=== PATIENT | male | born 1965 | race African-American/Black ===

== ENCOUNTER 2016-08-29 14:54 | Emergency (ER) | payer OTHER ==
[~2016-08-29] VITALS: Ht 170.2 cm; Wt 79.1 kg
[2016-08-29 15:18] VITALS: BP 141/87; PULSE 82; RESP 15; O2SAT 100
== END 2016-08-29 16:54 | disposition left against medical advice (07) ==
LOC: SED 14:54
DX: Z53.21 Procedure and treatment not carried out due to patient leaving prior to being seen by health care provider (principal)

== ENCOUNTER 2016-10-28 12:06 | Inpatient (IN) | payer OTHER ==
[~2016-10-28] VITALS: Ht 170.2 cm; Wt 76.1 kg
[2016-10-28] VITALS (13 sets, daily range): BP systolic 111–133; BP diastolic 72–87; PULSE 51–65; RESP 14–51; O2SAT 95–99
[2016-10-28] MEDS ORDERED: PYRI60TA PO (12:30)
[2016-10-28] MEDS ORDERED: PRE20 PO (12:30)
[2016-10-28] MEDS ORDERED: RANI150T11 PO (12:30)
[2016-10-28 12:57] LABS: BASOPHILS % (AUTO) 0.5 % (0-3); EOSINOPHILS % (AUTO) 0.3 % (0-5); MONOCYTES % (AUTO) 1.5 % (4-12); Mean Corpuscular Hemoglobin 25.6 pg (27.0-35.0); Mean Corpuscular Volume 78.6 fL (81-100); Platelet Count 297 bil/L (150-400)
--- NOTE | 2016-10-28 13:00 | ED.REPORT ---
HPI-Dyspnea / Wheezing Date of Service Oct 28, 2016 ED Provider: Tyler Epstein MD Pt is a 51 year old male with a history of recent diagnosis of myasthenia gravis who presents to the ED complaining of weakness onset yesterday. He c/o associated difficult walking and SOB. He denies pain, injury, nausea, vomiting, chest pain, fever, diaphoresis, and leg swelling. The pt reports that he felt weak last night, causing him to collapse; following that time, the pt was unable to walk and had to be helped to the bed. Per pt, his weakness is most prominent in his legs bilaterally. Nursing Notes Stated Complaint: FELL/TROUBLE BREATHING Chief Complaint: General Complaint Nursing Notes Reviewed: Yes ([facility] not reconciled) Allergies: Coded Allergies: No Known Allergies (Verified Allergy, Unknown, 08/29/16) Scheduled Prednisone (PredniSONE) 20 Mg Tablet 80 MG PO DAILY TAPER Pyridostigmine Meridian (Pyridostigmine Meridian) 60 Mg Tablet 30 MG PO TID Ranitidine (Zantac) 150 Mg Tablet 150 MG PO BID General Time Seen by MD: 12:45 Chief Complaint Other (Weakness) Hx Obtained From: Patient Arrived By: Walk-in Sudden in Onset?: No Onset Occurred: Yesterday Symptom Duration: Since onset Severity: Current: No pain currently Severity: Maximum: No pain Recent Healthcare: Recent doctor visit Similar Sx Previous: No Past Medical History Past Medical History Notes: Neurologist Dr. Salguero Past Medical History Myasthenia Gravis (New Dx: 10/2016) Past Surgical History Denies Smoking History Unknown if Ever Smoker Social History Other Social History: Good social support Ambulatory Status Independent Review of Systems Constitutional: Reports: Weakness - generalized, Denies: Chills, Fever Respiratory: Reports: Dyspnea on exertion, Shortness of breath Cardiovascular: Denies: Chest pain Skin: Denies Diaphoresis Complete sys rev & neg: except as marked. GI: Denies: Nausea, Vomiting Neurologic: Reports: Problem walking, Weakness Physical Exam Initial Vital Signs Vital Signs (First) Date Time Temp Pulse Resp B/P Pulse Ox O2 Delivery O2 Flow Rate FiO2 10/28/16 12:19 36.8 64 14 115/73 99 Room Air Initial VS: Reviewed, Vital signs normal Head / Eyes: Atraumatic, Normocephalic Abdomen / GI: Soft, Non-tender Extremities: Vascular intact, Neuro intact Skin: Warm, Dry, No cyanosis Neurologic: Alert, Oriented, Nonfocal Psychiatric: Mood/affect normal, Behavior normal General/Constitutional: Awake, Alert, Cooperative, Not toxic appearing Fatigued Neck: Atraumatic, Full range of motion Respiratory / Chest: Atraumatic, Breath sounds NL, Breath sounds = bilat Not visibily short of breath or in respiratory failure Cardiovascular: Heart rate NL, Regular rhythm, Heart sounds NL Neurologic: Oriented X3, Speech NL Bilaterally dysmetria. Fatigue ability that is marked and symmetric bilaterally. He can lift his legs off the bed for about 3-4 seconds. Interpretation & Diagnostics Lab Results Interpretation Result Diagram: 10/28/16 1235 10/28/16 1235 Test 10/28/16 12:35 White Blood Count 4.0th/mm3 (3.8-10.1) Red Blood Count 5.24mil/mm3 (4.40-5.80) Hemoglobin 13.4g/dL (13.8-17.2) Hematocrit 41.2% (41.0-50.0) Mean Corpuscular Volume 78.6fL (81-100) Mean Corpuscular Hemoglobin 25.6pg (27.0-35.0) Mean Corpuscular Hemoglobin Concent 32.5% (32.0-37.0) Red Cell Distribution Width 15.4% (12.3-15.4) Platelet Count 297bil/L (150-400) Neutrophils (%) (Auto) 81.0% (40-74) Lymphocytes (%) (Auto) 15.9% (14-46) Monocytes (%) (Auto) 1.5% (4-12) Eosinophils (%) (Auto) 0.3% (0-5) Basophils (%) (Auto) 0.5% (0-3) Sodium Level 137mEq/L (134-144) Potassium Level 3.6mEq/L (3.5-5.2) Chloride Level 97mEq/L (97-108) Carbon Dioxide Level 22mmol/L (18-29) Blood Urea Nitrogen 18mg/dL (6-24) Creatinine 1.08mg/dL (0.76-1.27) Estimat Glomerular Filtration Rate 76mL/min (>59) Glucose Level 135mg/dL (60-99) Calcium Level 9.7mg/dL (8.5-10.1) Total Bilirubin 0.4mg/dL (0.0-1.2) Aspartate Amino Transf (AST/SGOT) 28U/L (0-50) Alanine Aminotransferase (ALT/SGPT) 48U/L (0-44) Alkaline Phosphatase 55U/L (25-150) Troponin T < 0.010ug/L (0.0-0.011) Pro-B-Type Natriuretic Peptide < 5.00pg/mL (0-121) Total Protein 8.2g/dL (6.4-8.4) Albumin 4.6g/dL (3.4-5.0) Lab Results Interpretation: CBC nl CMP nl ECG Interpretation ECG Interpretation: Normal sinus rhythm with a rate of 66 Non-specific t-wave changes V1V2 No prior EKG for comparison. Time: 12:32 Interpreted by: ED physician X-Ray Chest Interpretation Chest Xray Interpretation: IMPRESSION: No source of cough is found. Dictated by: Carrington Tadeo M.D. on 10/28/2016 at 13:15 View: Portable, 1 view Interpretation / Wet Read by: Interpret - Radiologist Re-Eval/Medical Decision Med Decision/Clinical Course This is a 51M with 6 weeks of progressive neurologic symptoms, was diagnosed with myasthenia gravis last week. He is started a course of prednisone, as well as a low dose of Mestinon. I was continued to have weakness, and last night fell trying to walk. This morning he he was unable to ambulate, and he has a trace sense of shortness of breath. He denies fevers or chills. He denies infectious symptoms. He denies any injury from the fall yesterday. He has no laterality-the weakness is worse in the legs, but also involves the arm, but both right and left sides are symmetric. He denies difficulty swallowing, or diplopia. Symptoms are worsened by exertion and activity. Patient is globally weak. He does not appear toxic or in any visible distress. He is not clinically evident to be in any respiratory distress or near respiratory failure. His negative inspiratory pressures on the low end of normal, no signs of impending respiratory failure. He does have marked fatigability, and has difficulty with bilateral dysmetria, can only hold his legs up off the bed for about 3 seconds. However there is no asymmetry. Screening labs are normal. Chest x-rays negative. Overall his presentation is concerning for for his myasthenia, I doubt a cholinergic crisis given the low dose Mestinon being used. I discussed the case with Dr. salguero, who will consult and who recommends going ahead and initiating IVIG-so the first doses has been ordered. The patient be admitted for continued management. Source of Hx: Old records Re-Evaluation/Progress : Time of Eval: 14:08 Re-Evaluation/Progress Note: Pt rechecked. Informed pt of plan for admission. Pt understands and agrees with plan for admission. All questions addressed. Consultation #1: Referral / Consult Name: Pramod Salguero MD Consulted With: Neurology Call Returned at: 14:00 Cognos Developer: Agrees with eval, Agrees with plan Consultation #2: Referral / Consult Name: William Skelton MD Consulted With: Hospitalist Call Returned at: 14:37 Cognos Developer: Will see patient, Agrees with eval, Agrees with plan, Accepts admit Differential Diagnosis: Negative: Acute coronary syndrome, Airway obstruction, Dysrhythmia, Exercise induced asthma Counseled Regarding: Diagnosis, Lab results, Need for admission Discharge & Departure Impression: Primary Impression: Myasthenia gravis Additional Impression: Unable to ambulate Disposition: ADMITTED TO HOSPITAL Discharge Condition All VS Reviewed: Yes Condition: Stable Referrals: Emmanuel Cooney MD (PCP) Scribe Attestation Portions of this note were transcribed by Alina Edge. I, Dr. Epstein personally performed the history, physical exam and medical decision-making; I reviewed and confirmed the accuracy of the information in the transcribed note. Signed by: Sukhdev Unger, 10/28/16 and 14:40. copies to: Emmanuel Cooney MD, Matthew F MD Oct 28, 2016 13:00 Alina Marlow Oct 28, 2016 13:11
--- NOTE | 2016-10-28 13:17 | DRSVH ---
PROCEDURE: X-RAY CHEST ONE VIEW, PORTABLE ([id number]) INDICATIONS: COUGH TECHNIQUE: One view of the chest was acquired. COMPARISON: None. FINDINGS: Surgical changes and devices: None. Lungs and pleura: No pleural effusions or pneumothorax. Lungs are clear. Mediastinum: Mediastinal contours appear normal. Heart size is normal. Bones and chest wall: No suspicious bony lesions. Overlying soft tissues appear unremarkable. IMPRESSION: No source of cough is found. Dictated by: Carrington Tadeo M.D. on 10/28/2016 at 13:15 Approved by: Carrington Tadeo M.D. on 10/28/2016 at 13:15
[2016-10-28 13:23] LABS: TROPONIN T < 0.010 ug/L (0.0-0.011)
[2016-10-28] MEDS ORDERED: IVIG per Pharmacy (Initial) XX ONE ×2 (14:05→16:20)
[2016-10-28] MEDS ORDERED: 0.9% Sodium Chloride 1,000 ML IV SCH (14:38)
[2016-10-28] MEDS ORDERED: Ondansetron 2 mg/mL 2 mL Inj IVPUSH PRN ×2 (14:40→16:10)
[2016-10-28] MEDS ORDERED: Alum-Mag Hydrox-Simeth 30 mL Suspension PO PRN ×2 (14:40→16:10)
[2016-10-28] MEDS ORDERED: diphenhydrAMINE 25 mg Capsule PO ONE (15:25)
[2016-10-28] MEDS ORDERED: Privigen 10% 10 Gm/100 mL, 20 Gm/200 mL IV ONE ×2 (16:00)
[2016-10-28] MEDS ORDERED: Polyethylene Glycol (PEG) 17 Gm Powder PO PRN (16:10)
[2016-10-28] MEDS ORDERED: Potassium Chloride 20 mEq SR Tablet PO ONE (16:20)
--- NOTE | 2016-10-28 16:31 | PCM.CONPHA ---
Subjective Date of Service: Oct 28, 2016 Objective Vital Signs Date Time Temp Pulse Resp B/P Pulse Ox O2 Delivery O2 Flow Rate FiO2 10/28/16 15:25 36.6 51 17 128/85 98 Room Air 10/28/16 14:55 56 23 124/78 97 Room Air 10/28/16 13:49 36.5 60 17 118/78 98 Room Air 10/28/16 12:32 65 14 98 10/28/16 12:19 36.8 64 14 115/73 99 Room Air Weight (Kilograms): 76.100 Height (Feet): 5 Height (Inches): 7.00 Test 10/28/16 12:35 White Blood Count 4.0th/mm3 (3.8-10.1) Red Blood Count 5.24mil/mm3 (4.40-5.80) Hemoglobin 13.4g/dL (13.8-17.2) Hematocrit 41.2% (41.0-50.0) Mean Corpuscular Volume 78.6fL (81-100) Mean Corpuscular Hemoglobin 25.6pg (27.0-35.0) Mean Corpuscular Hemoglobin Concent 32.5% (32.0-37.0) Red Cell Distribution Width 15.4% (12.3-15.4) Platelet Count 297bil/L (150-400) Neutrophils (%) (Auto) 81.0% (40-74) Lymphocytes (%) (Auto) 15.9% (14-46) Monocytes (%) (Auto) 1.5% (4-12) Eosinophils (%) (Auto) 0.3% (0-5) Basophils (%) (Auto) 0.5% (0-3) Sodium Level 137mEq/L (134-144) Potassium Level 3.6mEq/L (3.5-5.2) Chloride Level 97mEq/L (97-108) Carbon Dioxide Level 22mmol/L (18-29) Blood Urea Nitrogen 18mg/dL (6-24) Creatinine 1.08mg/dL (0.76-1.27) Estimat Glomerular Filtration Rate 76mL/min (>59) Glucose Level 135mg/dL (60-99) Calcium Level 9.7mg/dL (8.5-10.1) Total Bilirubin 0.4mg/dL (0.0-1.2) Aspartate Amino Transf (AST/SGOT) 28U/L (0-50) Alanine Aminotransferase (ALT/SGPT) 48U/L (0-44) Alkaline Phosphatase 55U/L (25-150) Troponin T < 0.010ug/L (0.0-0.011) Pro-B-Type Natriuretic Peptide < 5.00pg/mL (0-121) Total Protein 8.2g/dL (6.4-8.4) Albumin 4.6g/dL (3.4-5.0) Assessment/Plan Assessment/Plan IVIG dosing per pharmacy Indication: myasthenia gravis Ordering provider: Dr. Tyler Epstein (after consulting Dr. Colorado, neurologist ). Pertinent info Actual body weight: 78.18 kg [employer] body weight: 61.3 kg Induction dosin-2 g/kg divided doses over 2-5 days Hospital preferred formulary IVIG product is Privigen Day 1 dose: Privigen 30 g (~0.5 g/kg) IV one time today. Infusion rate per protocol as tolerated by patient. Patient will require additional doses over the next several days to complete induction. Thank you, Stalin Elliott Pharmacist Stalin Elliott Oct 28, 2016 16:31
[2016-10-28] MEDS: 0.9% Sodium Chloride 1,000 ML IV SCH (16:38)
--- NOTE | 2016-10-28 16:58 | HP ---
[address] [address] HISTORY AND PHYSICAL PATIENT: JACE NIXON : 1965 MR#: [id number] ADMIT: 10/28/2016 JOB ID: [id number] PRIMARY CARE PROVIDER: Dr. Cooney. NEUROLOGIST: Dr. Colorado. Patient is admitted from the ED, inpatient status, Red team. CHIEF COMPLAINT: Weakness. HISTORY OF PRESENT ILLNESS: This is a 51-year-old male who has had two months of progressive weakness and diagnosed with myasthenia gravis last Monday by Dr. Colorado. He was started on pyridostigmine bromide 60 mg half tablet t.i.d., Zantac 75, and prednisone 20 mg four tablets daily. He was able to walk on Monday with difficulty. Now, he cannot really walk and his weakness has gotten worse. He presents to the ED. Our emergency department physician has spoken with Dr. Colorado, who requests admission and initiation of IVIG which has already been started. The patient today could only stand less than 1 minute before falling and he needed help to take even a couple steps, which is the most he could do which represents progressive weakness. The weakness is mostly arms and legs. He has not noted any nasal speech, lid lag, or evidence of ocular myasthenia. Patient has not had fevers or chills, significant headache, chest pain. A little nausea without emesis. That has resolved, no diarrhea. REVIEW OF SYSTEMS: Complete review of systems obtained, all pertinent positives in HPI as above, rest of review of systems are negative. PAST MEDICAL HISTORY: Myasthenia gravis, diagnosed October 2016. MEDICATIONS: 1. Prednisone 20 mg four tablets daily with a taper. 2. Pyridostigmine bromide 60 mg half tablet t.i.d. 3. Zantac OTC 75 daily. ALLERGIES: None. SOCIAL HISTORY: Lives with his significant other. Does not smoke. Drinks small amounts of occasional alcohol/beer. FAMILY HISTORY: Mother is healthy. Father had prostate cancer. PHYSICAL EXAMINATION: Afebrile, heart rate 51-64, blood pressure 178/85. O2 sats 98% on room air. Skin is warm and dry. Neurologically, on exam I do not see any significant lid lag or nasal speech. Patient cannot pronate both hands due to weakness. He cannot stand or walk as noted above except for a few seconds. Straight leg: He is unable to straight leg raise either leg off the bed. Has no muscle tenderness. Eyes are PERRLA. EOM intact. Mouth shows adequate hydration. No JVD. Thyroid grossly normal. Cardiac is regular. No murmur. Lungs clear to auscultation and percussion. Abdomen soft, nonacute, benign. Extremities showed no edema. DIAGNOSIS: Acute on chronic myasthenia gravis present on admission, active. Will continue with patient's Mestinon (pyridostigmine) 30 mg t.i.d., Zantac, and prednisone 80 mg daily. Will continue IVIG daily. He has already gotten his first dose. Consultation with Neurology has been requested. The patient will be monitored on telemetry. CODE STATUS: FULL CODE. Code sheet filled out.
--- NOTE | 2016-10-28 17:04 | NUR ---
Admit Pt arrived to floor ~1510. No c/o pain or nausea. Pt states woke up this morning unable to walk. Orders to start IVIG. BP stable @ 127/82 Hr 52. Pt and significant other given info from [facility] on IVIG and all questions answered by Dr. Skelton and this nurse. Pt off to CT @ 1700 and back to floor @ 1707. Pt tolerated well. Started IVIG @ 25mg/hr. so far pt is tolerating. Care conts
--- NOTE | 2016-10-28 17:16 | DRSVH ---
PROCEDURE: CT CHEST WITH CONTRAST ([id number]) INDICATIONS: Myasthenia gravis TECHNIQUE: After the administration of intravenous contrast, 5 mm thick sections acquired from the pulmonary api bee to the posterior costophrenic angles. 7 mm thick coronal and sagittal MIP reformats were acquire d. For radiation dose reduction, the following was used: automated exposure control, adjustment of mA and/or kV according to patient size. COMPARISON: [facility], CR, XR CHEST 1VW (PORTABLE), 10/28/2016, 12:35. FINDINGS: Image quality: Excellent. Lungs and pleura: There is mild dependent atelectasis. No acute consolidation. No pleural effusion s or pneumothorax. Central and peripheral airways are patent and normal in caliber. Mediastinum: Heart size is normal. No pericardial effusion. No mediastinal or hilar adenopathy by size criteria. No discrete anterior mediastinal mass is identified. Thoracic aorta and central pulm onary arteries are normal in size. Esophagus is normal in caliber. No hiatal hernia. Bones and chest wall: No suspicious bony lesions. No vertebral body compression fractures. No axil chet or supraclavicular adenopathy by size criteria. The visualized thyroid demonstrates no discrete nodules. Abdomen: Visualized upper abdominal solid organs appear normal. Upper abdominal bowel loops are nor mal in caliber. IMPRESSION: 1. No mediastinal or pulmonary mass lesions identified. Dictated by: Celio Mcintyre M.D. on 10/28/2016 at 17:10 Approved by: Celio Mcintyre M.D. on 10/28/2016 at 17:14
--- NOTE | 2016-10-28 17:45 | NUR ---
pt has not voided on my shift Addendum: 10/28/16 at 1745 by HUMBERTO JARAMILLO CNA Amended: Links added.
[2016-10-28] MEDS: Heparin 5,000 Unit/mL Inj SUBQ SCH (18:18)
[2016-10-29] MEDS: Heparin 5,000 Unit/mL Inj SUBQ SCH ×2 (00:46→08:17)
[2016-10-29 01:05] VITALS: BP 101/51; PULSE 56; RESP 20; O2SAT 99
--- NOTE | 2016-10-29 03:47 | NUR ---
IVIG Tolerated infusion with no noted adverse side effects. Encouraged to cough and deep breath in relation to the decrease in activity. Met with neurologist and was told that new medications will begin 4 days after the last IVIG infusion. c/o mild spasms in LE, denies pain. Care continues. Addendum: 10/29/16 at 0541 by JORDY CHRISTOPHER RN Core weakness Patient attempted to dangle at bedside to utilize urinal, unable to support self and fell back into bed. Patient states that this is new. Charge nurse informed, Night hospitalist paged. Transfer to 2cd floor. report given to DANG.
[2016-10-29] MEDS: 0.9% Sodium Chloride 1,000 ML IV SCH (03:58)
[2016-10-29 05:17] VITALS: BP 127/76; PULSE 48; RESP 16; O2SAT 99
[2016-10-29 05:31] VITALS: PULSE 50
--- NOTE | 2016-10-29 06:11 | NUR ---
Transfer Note Received to [facility] 2015 from [facility] at 0600. Pt alert and oriented. Weak but very pleasant. Transferred from bed to bed with full assist. Sats high 90s on room air.
--- NOTE | 2016-10-29 06:37 | NUR ---
vital capacity 1.35 liters. negative inspiratory force -10 centimeters of water.
[2016-10-29 07:16] VITALS: BP 125/76; PULSE 47; RESP 11; O2SAT 98
[2016-10-29 07:21] VITALS: PULSE 47
--- NOTE | 2016-10-29 07:55 | ABG ---
DateTimeAnalyzed 07:50:00 -_ pH ____7.431 - 7.350 7.450 pCO2 ___37.1__ -mmHg 35.0 45.0 pO2 105 -mmHg 69.0 116 HCO3- ___24.3__ -mmol/L 22.0 26.0 ABE ____0.7__ -mmol/L -2.0 2.0 tHb ___12.0__ -g/dL O2Hb ___95.5__ -% COHb ____1.1__ -% MetHb ____0.9__ -% sO2 ___97.5__ -% 25.0 FIO2 ___21.0__ -% Drawn By as - Date/Time Notified____ 07:55:00 -_ Spontaneous_RR ___12.0__ -b/min Notified By ams - Notified Whom Dr Kin - B 761 -mmHg tO2 ___16.3__ -Vol% Mohan test _Positive -
[2016-10-29] MEDS ORDERED: predniSONE 20 mg Tablet PO SCH (08:30)
--- NOTE | 2016-10-29 10:54 | CONS ---
[address] [address] CONSULTATION REPORT PATIENT: JACE NIXON : 1965 MR#: [id number] ADMIT: 10/28/2016 JOB ID: [id number] DATE OF SERVICE: 10/29/2016 REASON FOR CONSULTATION: Dyspnea and generalized weakness in a patient with recent diagnosis of myasthenia gravis. HISTORY OF ILLNESS: The patient is a very pleasant 51-year-old gentleman, who first noted diplopia in late August or early September. During a camping trip in September, he noticed generalized musculoskeletal weakness, such that it was difficult even for him to handle a fishing chino and reel in his catch. While finishing his camping trip, he fell when his legs collapsed beneath him. He presented to his primary care physician, who referred him to an pastrycook for the diplopia, and recommended stretching exercises for his muscular weakness. The pastrycook advised an MRI, given the diplopia. With worsening diplopia and generalized weakness, he sought an evaluation at an Urgent Care Center. The Urgent Care Center referred him to Neurology. Neurology first saw him on October 03, and obtained acetylcholine receptor antibodies. These returned positive for receptor antibodies, and he was started on Mestinon 30 mg p.o. q.8 hours. Despite this, he noted progressive generalized weakness. He reported this to his neurologist one week ago, and was started on prednisone daily. Despite the addition of prednisone, he experienced worsening weakness, such that, yesterday, he felt unable to stand or walk safely. He reported this to his neurologist, who advised the patient to come to our hospital for admission. Since admission, he has been started on intravenous immunoglobulin. Yesterday, his vital capacity was 3.7 L, but this morning, it had fallen to 1.3. Yesterday, he also reported a sensation of dyspnea, such that it felt; "like I'm breathing through a hose." This morning, he feels his dyspnea is slightly improved. He has severe weakness; however, and has not attempted to get out of bed yet today. He appears comfortable at rest. He denies fevers, chills, sweats, weight loss, cough, worsening dyspnea, lower extremity edema, history of cardiac disease, renal disease. OUTPATIENT MEDICATIONS: Mestinon and prednisone. DRUG ALLERGIES: None known. 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 FAMILY HISTORY: Not reviewed. REVIEW OF SYSTEMS: Limited to the above and positives as noted. PHYSICAL EXAMINATION: This is a slightly built gentleman, who appears comfortable at rest, and speaks in full sentences. His blood pressure is 125/76, his heart rate is 50 and regular, respirations are 11, and his O2 saturation at rest on room air is 98%. He is, and has been, afebrile since admission. HEENT exam: He has some dysconjugate gaze on far lateral gaze in both directions. The pupils; however, appear equal and reactive. Conjunctivae are non-injected. Sclerae are dark, not obviously icteric. The face appears symmetric. Tongue is midline with full excursion. His airway view is a Mallampati grade 2. His oral mucosa is moist, without ulcerations or exudate. Trachea is midline. There is no supraclavicular or cervical lymphadenopathy. Of note, his thyroid is nonpalpable. Chest is clear to auscultation with good air movement throughout. No wheeze, rale, or rhonchi are heard. Cardiac exam: Regular rhythm. Normal S1, S2. No extrasystoles. No murmur, gallop, or rub. Extremities without cyanosis, clubbing. No synovitis. No nail change. Pulses 2+, both radius. Neurologic: Face symmetric. Limited extraocular movements. Far lateral gaze. Pupils are equal and round. Tongue midline. Full excursion. He has weak finger extension, architecture analyst, and abduction of the thumb bilaterally. DATABASE: Per the electronic medical record. A chest CT scan, with contrast, dated October 28, shows normal lung parenchyma, but for minimal plate-like atelectasis at both posterior bases. There is no evidence of a thymic tumor or other mediastinal process. His CBC shows a hemoglobin of 13, hematocrit 41, WBC 4.0, with 81% neutrophils and 16% lymphocytes. He has 297,000 platelets. Chemistry show a sodium of 137, potassium 3.6, chloride 97, total CO2 of 22, BUN of 18, creatinine of 1.08, and a random glucose of 135, total calcium is 9.7. LFTs are normal, but for mildly elevated ALT of 48. An arterial blood gas from this morning shows a pH of 7.43, pCO2 of 37, and a pO2 of 105 while at rest on room air. IMPRESSION: Myasthenia gravis. His rapid significant decline of vital capacity overnight is cause for concern. However, subjectively, he appears quite comfortable at rest, and is still speaking in full sentences without accessory muscle use. His resting blood gas, likewise, is normal, and is somewhat reassuring. We need to continue to watch closely for evidence of ventilatory failure. We will continue to follow his vital capacity, and be prepared for elective intubation and initiation of mechanical ventilation as needed. With his steady progression of symptoms over the last two months, despite escalating therapy, I think we should consider whether he would benefit from the addition of immunosuppression and/or plasmapheresis/plasma exchange. The latter modalities are not available at this hospital, and might necessitate a transfer. Overall plan for treatment will need to be coordinated by his neurologist, whom we are attempting to contact this morning. RECOMMEND: 1. Mestinon, steroids, and IVIG as you are for now. 2. Routine VTE prophylaxis. 3. Serial vital capacity with elective intubation should it fall below 1 Liter on good effort. 4. Discuss potential need for plasmapheresis / plasma exchange with his primary neurologist. Thank you for requesting Pulmonary Critical Care consultation. We will continue to follow with you while the patient remains seriously ill. GRADY
--- NOTE | 2016-10-29 11:20 | NUR ---
Social Work: Initial Assessment/Multidisciplinary Rounds D: Per EMR review, pt is a 51 year old male admitted for Myasthenia Gravis. Pt insurance is [employer] with no VA Benefits or LTC insurance. PCP is Emmanuel Cooney MD. NOK is Lea Napoles, mother, . Advanced directives not completed- information provided by LEATHER SKINNER. RA score is low, 05/01. LEATHER SKINNER met with the patient at bedside at pt has multiple providers involved in his complex care. Sw role explained, discharge planning checklist and contact information provided. Pt lives in [place] with his s/o. Up until a week ago the patient was completely independent except for driving. Pt states that he has never been this impacted by his diagnosis and that he could barely take 2 steps. Pt has not been using any DME to assist himself and does not own any equipment. Pt has never had HH or skilled rehab. He is appreciative of [facility] visit and very receptive to discharge planning as his d/c needs become more apparent. Pt discussed in am rounds with MD and team. Pt is in CCU status. Neuro has been consulted. No concerns about pt's capacity for self-care at this time. Discharge needs unknown at this time. A: Pt who is I at baseline but experiencing 1 week of weakness. P: Evolving; LEATHER SKINNER to continue to follow to assess for pt's discharge needs and coordinate necessary referrals as ordered by DONATO Arriaza Addendum: 10/29/16 at 1126 by ABIGAIL YOON Amended: Links added.
[2016-10-29 11:22] VITALS: BP 122/71; PULSE 60; RESP 13; O2SAT 98
--- NOTE | 2016-10-29 12:25 | NUR ---
Arrival to room 2019 Patient arrived to unit. Alert and oriented x 3. NIH 5. Vital signs stable. SR per intake nurse. Denies pain. Patient oriented to room and call light. Plan of care and safety precautions reviewed at bedside. Will continue to monitor.
[2016-10-29 12:30] LABS: APPEARANCE,URINE CLEAR (CLEAR,HAZY); COLOR,URINE STRAW (YELLOW); OCCULT BLOOD,URINE NEGATIVE (NEGATIVE); UROBILINOGEN,URINE NORMAL (NORMAL)
--- NOTE | 2016-10-29 13:29 | CONS ---
[address] [address] CONSULTATION REPORT PATIENT: JACE NIXON : 1965 MR#: [id number] ADMIT: 10/28/2016 JOB ID: [id number] DATE OF SERVICE: 10/28/2016 REQUESTING PROVIDER: Dr. Skelton. NEUROLOGIST: Pramod Colorado MD. CHIEF COMPLAINT: Worsening symptoms. HISTORY OF PRESENTING ILLNESS: The patient is a very pleasant, 51-year-old, right-handed man with newly diagnosed myasthenia gravis, acetylcholine esterase antibody positive, seen by me in the clinic. Started on Mestinon and steroids. He noted gradually progressive weakness and presented to the emergency department after I contacted him and requested that he go to the emergency department. He was evaluated in the emergency department. Given the decline in his neurologic status we discussed initiating intravenous immunoglobulin, 0.4 g/kg x5 days. Reviewed side effects including the potential for renal impairment and the rare side effect of stroke. Reviewed side effects in detail. He also had a chest x-ray demonstrating no abnormalities. He had a CT of his chest, which demonstrated no mediastinal or pulmonary mass lesions. Reviewed management of myasthenia gravis in detail with him. HOME MEDICATIONS: Include: 1. Pyridostigmine bromide 30 mg p.o. t.i.d. 2. Prednisone 80 mg daily. 3. Zantac OTC 75 mg daily. He reports that prior to the onset of generalized weakness and double vision, he was in his normal state of health. REVIEW OF SYSTEMS: A complete review of systems was performed and was remarkable for above-noted. WBC of 4.0, hemoglobin 13.4, hematocrit 41.2, platelets of 297. Chemistries: Sodium 137, potassium 3.6, chloride 97, bicarb 22, BUN 18, creatinine 1.08. GFR of 76. Glucose 135. ALT of 48. Rest of labs within normal limits. Urinalysis negative. PHYSICAL EXAMINATION: Temperature 36.6, pulse of 51, respiratory rate of 17, blood pressure 128/85, 98% on room air. General: He is a well-developed, well-nourished man in no acute distress. Head: Normocephalic, atraumatic. Neck was supple. No carotid bruits were auscultated bilaterally. Negative Kernig. Negative Brudzinski. Chest clear to auscultation. Heart regular rate and rhythm. Abdomen: Soft, nontender, nondistended. Extremities: No cyanosis, clubbing, or edema. Skin: No skin lesions were noted. On examination, there is no evidence of dysarthria or dysphonia; however, he does have bilateral ptosis and dysconjugate horizontal gaze, especially to the left, with limited horizontal ductions noted. NEUROLOGIC EXAMINATION: Mental status: He is awake, alert, and oriented x3. Speech clear and fluent with intact comprehension. There was no aphasia. Cranial nerves: Pupils equal, round, and reactive to light. Extraocular movements were limited with dysconjugate horizontal eye movements to the left noted. There was also bilateral ptosis to 25 degrees bilaterally noted. Face appeared symmetrical. Facial sensation was intact to light touch and temperature. Auditory sensation was intact to finger rub. Palatal elevation was symmetrical. Tongue was midline. Sternocleidomastoid and trapezius examination was 5/5. Head flexion 5-/5. Hip extension 5/5. Motor: In the bilateral upper extremities 3+/5. In the lower extremities 4+/5. Sensation was intact to light touch and temperature. Deep tendon reflexes were diminished throughout. Plantars were flexor bilaterally. Coordination: Blzvin-ph-owpw was intact without evidence of dysmetria. It was limited due to proximal weakness. As noted above, the proximal upper extremities are 3+/5. The proximal lower extremities are 4+/5. Deep tendon reflexes diminished throughout. Gait was deferred. IMPRESSION: Worsening myasthenia gravis, acetylcholine esterase antibody positive. RECOMMENDATIONS: Continue close respiratory monitoring. If symptoms do progress, recommend transfer for plasmapheresis. Otherwise, at this point, continue IVIG. Continue Mestinon and prednisone. Although certainly IV methylprednisolone is certainly an option, there is a concern that not only may there be initial worsening of generalized weakness, the other concern is that it may be difficult overall to wean him off steroids after initiating a large dose of IV methylprednisolone. If symptoms do progress, besides plasmapheresis, another option is IV methylprednisolone 60 mg. He will then need to be tapered off steroids gradually. In the event that his head flexion weakness progresses, we do not see any significant improvement symptomatically or neurologically evident clinically and on examination with intravenous immunoglobulin, or there is the development of worsening respiratory status, consider transfer to another institution for plasmapheresis as we do not have plasmapheresis capabilities here at this institution. FAMILY HISTORY: No family history of any neurologic disorders. SOCIAL HISTORY: No tobacco, alcohol, or drugs. ALLERGIES: No known drug allergies. MEDICATIONS: As above noted. SOCIAL HISTORY: No tobacco, alcohol, or drugs. REVIEW OF SYSTEMS: A complete review of systems was performed and was remarkable for above-noted. Also note that he denies any dysphagia and was able to eat without difficulty. PRIMARY CARE PROVIDER: Emmanuel Cooney MD. Mother is Lea Nixon, . Neurologist: Dr. Colorado. We will continue to follow. I do see him as an outpatient. Thank you, again, Dr. Skelton, for allowing me to participate in the care of your patient. Please feel free to contact me with any questions or concerns. ADDITIONAL INFORMATION: LABORATORY DATA: Initial negative inspiratory force was -30 in the emergency department. It went down to as low as -10 this morning and now numbers were -20 and -28 when rechecked at 1:15 p.m. Addenda added by ELIZABET 10/31/16 at 7:06am
--- NOTE | 2016-10-29 13:50 | PROG NOTE ---
[address] [address] PROGRESS NOTE PATIENT: JACE NIXON : 1965 MR#: [id number] ADMIT: 10/28/2016 JOB ID: [id number] DATE: SUBJECTIVE: Overnight, noted to have a change in respiratory function. Reviewed note. Demonstrating a vital capacity of 1.35 L with negative inspiratory force of -10 cm of water. He does report that he has not noted any improvement after the initial intravenous immunoglobulin infusion. He does report now that he has difficulty sitting up in bed and is unable to stand or walk. PHYSICAL EXAMINATION: Temperature 36.9, pulse of 60, respiratory rate of 13, blood pressure 122/71, pulse oximetry 98% on room air. General: He is a well-developed, well-nourished man in mild acute distress. Head: Normocephalic, atraumatic. Neck supple. No carotid bruits were auscultated. Chest was clear to auscultation. Heart rate regular rate and rhythm. Abdomen: Soft, nondistended, nontender. Extremities: No cyanosis, clubbing, or edema. NEUROLOGIC EXAMINATION: Mental status: He is awake, alert, and oriented, speaking in full sentences. No dyspnea was apparent on examination. No aphasia was noted. No dysarthria was noted. There was no dysphonia noted. Cranial nerves: Pupils equal, round, and reactive to light. There were dysconjugate horizontal eye movements of the left. There was reduced range of motion horizontally of extracranial muscles, incomplete ductions with horizontal gaze to the left. There is bilateral ptosis noted, 25% bilaterally. There was a mild degree oral facial weakness, 5-/5. His palate did elevate symmetrically. Face appeared symmetrical. Facial sensation was intact to light touch and temperature. Sensation was intact to finger rub. Palatal elevation was symmetrical. Sternocleidomastoid and trapezius examination today 5-/5. Motor: Proximal weakness of the bilateral upper and lower extremities 3+ in the proximal upper extremities, and 4+ in the proximal lower extremities. The rest of extremities examined 4/5. [employer] strength was 4+/5. Sustained upgaze was noted to exacerbate the bilateral ptosis. Neck flexion was 4+/5. Neck extension 5/5. Ispste-ns-ojwn was intact with no evidence of dysmetria although it was limited secondary to bilateral proximal upper extremity weakness. Deep tendon reflexes were diminished throughout however symmetrical. Plantars were flexor bilaterally. Gait was deferred. IMPRESSION: Myasthenia gravis exacerbation. RECOMMENDATIONS: My concern is that at this point his respiratory status appears to be declining and he has not noted any significant improvement after the 1st round of intravenous immunoglobulin. Although certainly we could increase the dose of intravenous immunoglobulin, there is a potential for increased risk of side effects associated with larger doses of intravenous immunoglobulin. Certainly an increased dose of steroids including a IV dose of methylprednisolone 60 mg could be also considered. However, there is concern regarding the potential for initial worsening of generalized weakness following an intravenous dose of methylprednisolone, as well as the need for a slower taper off steroids should he require intravenous steroids. At this point, I would consider plasmapheresis. Consider transfer to nearest institution where plasmapheresis services are available. It should be noted that his acetylcholine binding antibodies were 0.64 with a cut-off being 0.4. He acetylcholine receptor blocking antibodies were 41%, and cutoff being 30%. The acetylcholine receptor antibody modulating antibodies were noted to be negative. Aldolase was 4, creatine kinase was 452. Given these laboratory values combined with the decline in his respiratory function and an apparent worsening of his neurologic symptoms after an initial dose of intravenous immunoglobulin, consider transfer to an outside institution for plasmapheresis. I discussed this in detail with the patient at the bedside. My concern is that his symptoms are progressing to the point where he may develop a myasthenic crisis. Due to the risk for side effects, I would not increase the Mestinon at this point, as some patients do note an initial worsening of generalized weakness after Mestinon is increased, although that certainly is another option to consider. I discussed this with Dr. Sanderson. Please feel free to contact me with any questions or concerns.
--- NOTE | 2016-10-29 14:59 | PCM.DC.MED ---
Discharge Summary Date of Service Oct 29, 2016 Dates of Hospitalization Date of Hospital Admission Oct 28, 2016 at 14:52 Date of Discharge: Oct 29, 2016 Providers: Admitting Physician: William Skelton MD Primary Care Physician: Emmanuel Cooney MD Attending Physician: Pramod Salguero MD Diagnosis at Time of Discharge Diagnosis at Time of Discharge 1. Impending respiratory failure. 2. Myasthenia gravis crisis with progressive weakness Consultations Dr. Salguero, neurology Procedures XRay, CTs & MRIs Chest CT, unremarkable. No mediastinal tumor Chest x-ray unremarkable. Brief History Patient is admitted for progressive weakness. Hospital Course Patient is admitted for myasthenia gravis worsening. He has been diagnosed with this his knee diagnosis a week prior to arrival. He was started on Mestinon and prednisone. He had ongoing progression of weakness. Examination patient is placed on prednisone 80 mg a day and starting IVIG. The patient had progressive weakness over the course of the next 12 hours. On the morning of discharge he had an NIF of about 10 and developed capacity 1.3 L. This was discussed with Dr. salguero a recommended transfer to a Medical Center that can perform plasmapheresis. The patient remained stable for the rest of the morning and discussions followed with Olga Lidia Barth. The patient had a repeat of 20-30 prior to transfer about capacity of over 3 L. The patient understood the rationale for transfer wishes to provide a higher level care, specifically plasmapheresis. Exam Vital Signs (Last) Date Time Temp Pulse Resp B/P Pulse Ox O2 Delivery O2 Flow Rate FiO2 10/29/16 11:22 36.9 60 13 122/71 98 Room Air Exam Patient is seen and examined on the day of discharge Test 10/28/16 11:32 10/28/16 12:35 Urine Color Straw (YELLOW) Urine Appearance Clear (CLEAR,HAZY) Urine pH 6.0 (5.0-8.0) Urine Specific [place] 1.015 (1.003-1.035) Urine Protein Negativemg/dL (NEG,TRACE) Urine Glucose (UA) Negativemg/dL (NEGATIVE) Urine Ketones Negativemg/dL (NEGATIVE) Urine Occult Blood Negative (NEGATIVE) Urine Nitrite Negative (NEGATIVE) Urine Bilirubin Negative (NEGATIVE) Urine Urobilinogen Normalmg/dL (NORMAL) Urine Leukocyte Esterase Negative (NEGATIVE) Urine RBC 0-2/hpf (0-2) Urine WBC 0-5/hpf (0-5) Urine Epithelial Cells None/hpf (NONE-MOD) Urine Crystals None seen (NONE SEEN) Urine Bacteria None/hpf (NONE-FEW) Urine Hyaline Casts None/lpf (NONE) Urine Granular Casts None seen (NONE SEEN) Urine Waxy Casts None seen (NONE SEEN) Urine Red Blood Cell Casts None seen (NONE SEEN) Urine White Blood Cell Casts None seen (NONE SEEN) Urine Mucus None seen (None Seen) Urine Trichomonas None seen (NONE SEEN) Urine Yeast None (NONE SEEN) Urinalysis Comment None Urine Culture Reflexed Not indicated White Blood Count 4.0th/mm3 (3.8-10.1) Red Blood Count 5.24mil/mm3 (4.40-5.80) Hemoglobin 13.4g/dL (13.8-17.2) Hematocrit 41.2% (41.0-50.0) Mean Corpuscular Volume 78.6fL (81-100) Mean Corpuscular Hemoglobin 25.6pg (27.0-35.0) Mean Corpuscular Hemoglobin Concent 32.5% (32.0-37.0) Red Cell Distribution Width 15.4% (12.3-15.4) Platelet Count 297bil/L (150-400) Neutrophils (%) (Auto) 81.0% (40-74) Lymphocytes (%) (Auto) 15.9% (14-46) Monocytes (%) (Auto) 1.5% (4-12) Eosinophils (%) (Auto) 0.3% (0-5) Basophils (%) (Auto) 0.5% (0-3) Sodium Level 137mEq/L (134-144) Potassium Level 3.6mEq/L (3.5-5.2) Chloride Level 97mEq/L (97-108) Carbon Dioxide Level 22mmol/L (18-29) Blood Urea Nitrogen 18mg/dL (6-24) Creatinine 1.08mg/dL (0.76-1.27) Estimat Glomerular Filtration Rate 76mL/min (>59) Glucose Level 135mg/dL (60-99) Calcium Level 9.7mg/dL (8.5-10.1) Total Bilirubin 0.4mg/dL (0.0-1.2) Aspartate Amino Transf (AST/SGOT) 28U/L (0-50) Alanine Aminotransferase (ALT/SGPT) 48U/L (0-44) Alkaline Phosphatase 55U/L (25-150) Troponin T < 0.010ug/L (0.0-0.011) Pro-B-Type Natriuretic Peptide < 5.00pg/mL (0-121) Total Protein 8.2g/dL (6.4-8.4) Albumin 4.6g/dL (3.4-5.0) Discharge Medications Discharge Medications Prednisone (PredniSONE) 20 Mg Tablet 80 MG PO DAILY (Reported) TAPER Pyridostigmine [place] (Pyridostigmine [place]) 60 Mg Tablet 30 MG PO TID ( Reported) Ranitidine (Zantac) 150 Mg Tablet 150 MG PO BID (Reported) Followup Plan Disposition: Transfer to [facility] Time spent 60 minutes Mohan Sanderson MD Oct 29, 2016 14:59
--- NOTE | 2016-10-29 15:10 | NUR ---
Transfer Pt transferred via EMS to [facility]. Alert and oriented x 3. No respiratory distress. Denies SOA. Continues on room air, Sp02 >92%. Vital signs stable. Denies pain. Personal belongings reviewed.
[2016-10-29] MEDS ORDERED: IVIG per Pharmacy (Initial) XX SCH (17:00)
== END 2016-10-29 15:30 | disposition short-term general hospital (02) | DRG 57 ==
LOC: SED 12:06 → OSC 14:52 → PCC 10-29 05:54 → CCU 10-29 07:38
PROVIDERS: ADMIT Hospitalist; ATTEND Hospitalist
PROC: 4A033R1 Measurement of Arterial Saturation, Peripheral, Percutaneous Approach (ICD-10-PCS; principal; 2016-10-29)
DX: G70.01 Myasthenia gravis with (acute) exacerbation (principal); W19.XXXA Unspecified fall, initial encounter; Y93.9 Activity, unspecified; R06.00 Dyspnea, unspecified